=== PATIENT | female | born 1945 | race Caucasian/White ===

== ENCOUNTER → 2017-04-28 | Outpatient (CLI) | payer BC ==
--- NOTE | 2017-04-28 16:08 | MAMMOGRAPHY REPORT ---
BILATERAL DIGITAL SCREENING MAMMOGRAM WITH CAD: 04/28/2017 CLINICAL HISTORY: Routine screening. TECHNIQUE: Bilateral CC and MLO views were obtained. A right XCCL view was also obtained. Current brian proctor was also evaluated with a Computer Aided Detection (CAD) system. COMPARISON: Comparison is made to exams dated: 02/10/2016 mammogram, 02/08/2015 mammogram, 12/25/2013 m ammogram, 12/22/2012 mammogram, 12/17/2011 mammogram, and 12/15/2010 mammogram - [facility] enter. BREAST COMPOSITION: There are scattered areas of fibroglandular density in both breasts. FINDINGS: There are scattered stable benign-appearing rounded and rim calcifications. Stable nodular asymmetries in the superior posterior right breast on the MLO view and medial posterior right breast on the CC view. No new suspicious mass, architectural distortion or cluster of microcalcifications is seen. IMPRESSION: ACR BI-RADS CATEGORY 1: NEGATIVE There is no mammographic evidence of malignancy. A 1 year screening mammogram is recommended. The pa tient will receive written notification of the results. Approximately 10% of breast cancers are not detected with mammography. A negative mammographic report should not delay biopsy if a clinically suggestive mass is present. Suzette Chowdhury M.D. ay/:04/28/2017 15:15:02 Administrative Tech: Annabelle PEREZ(Tierra)(M), [facility] letter sent: Normal 1/2 BI-RADS Code: ACR BI-RADS Category 1: Negative
== END | disposition home or self-care (01) ==
LOC: C.MAMM 13:44
PROVIDERS: ATTEND Physician Assistant
DX: Z12.31 Encounter for screening mammogram for malignant neoplasm of breast (principal)

== ENCOUNTER 2017-09-16 14:55 | Emergency (ER) | payer OTHER, BC ==
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
[2017-09-16] MEDS ORDERED: ONDANSETRON INJ 2 MG/ML 2 ML VIAL ONE ×2 (15:08→17:19)
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
[2017-09-16] MEDS ORDERED: FENTANYL CITRATE INJ 50 MCG/1 ML 2 ML VIAL IV STA ×2 (16:08→16:51)
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
[2017-09-16 16:23] LABS: BASO % 0.4 %; BASO ABS # 0.02 K/uL (0-0.2); COMPLETE YES; EOS % 3.2 %; HEMATOCRIT 41.8 % (37-47); IG% 1.1 %; LYMPH % 27.9 %; LYMPH ABS # 1.58 K/uL (1.2-3.4); MEAN CELL VOLUME 94.6 fL (80-100); MEAN CORPUSCULAR HEMOGLOBIN 31.9 pg (25-34); MEAN CORPUSCULAR HGB CONC 33.7 g/dl (32-36); MEAN PLATELET VOLUME 12.9 fL (7.4-10.4); MONO % 5.5 %; NEUT % 61.9 %; PLATELET COUNT 167 K/uL (130-400); RED BLOOD COUNT 4.42 M/uL (4.2-5.4); WHITE BLOOD COUNT 5.66 K/uL (4.8-10.8)
[2017-09-16] MEDS ORDERED: ALBU18002 PO (16:23)
[2017-09-16] MEDS ORDERED: MULT-506 PO (16:23)
[2017-09-16] MEDS ORDERED: CALC600T9 PO (16:23)
[2017-09-16] MEDS ORDERED: MULT-839 PO (16:23)
[2017-09-16] MEDS ORDERED: SYN75 PO (16:23)
[2017-09-16] MEDS ORDERED: TRIA0.5C4 TOP (16:23)
[2017-09-16 16:30] LABS: PROTHROMBIN TIME (PATIENT) 10.8 SECONDS (9.0-12.0)
[2017-09-16 16:56] LABS: ALB/GLOB RATIO 1.1 (0.9-2); ALKALINE PHOSPHATASE 88 U/L (45-117); ALT/SGPT 23 U/L (12-78); BLOOD UREA NITROGEN 12 mg/dl (7-18); BUN/CREATININE RATIO 15.7 (10-20); CALCIUM 9.4 mg/dl (8.5-10.1); CARBON DIOXIDE 25 mmol/L (21-32); CHLORIDE 98 mmol/L (98-107); CREATININE 0.78 mg/dl (0.60-1.20); GLUCOSE 81 mg/dl (70-99); SODIUM 134 mmol/L (136-145)
[2017-09-16] MEDS ORDERED: NURSING VERBAL MED ORDER ONE ×2 (17:00→18:30)
[2017-09-16] MEDS ORDERED: LABETALOL HCL IV 5 MG/ML 20ML IV STA (17:52)
[2017-09-16 17:59] LABS: POTASSIUM 3.7 mmol/L (3.5-5.1)
[2017-09-16 19:01] VITALS: BP 146/85; PULSE 82; TEMP 36.5; O2SAT 96
[2017-09-17 04:41] LABS: ISTAT CREATININE 0.7 mg/dl (0.6-1.3); ISTAT IONIZED CALCIUM 1.12 mmol/l (1.12-1.32)
== END 2017-09-16 18:43 | disposition short-term general hospital (02) ==
LOC: EDBD 14:55 → C.EDA 14:57
DX: S06.6X9A Traumatic subarachnoid hemorrhage with loss of consciousness of unspecified duration, initial encounter (principal); S06.5X9A Traumatic subdural hemorrhage with loss of consciousness of unspecified duration, initial encounter; V43.53XA Car driver injured in collision with pick-up truck in traffic accident, initial encounter; Y93.89 Activity, other specified; Y99.8 Other external cause status